=== PATIENT | male | born 1990 | race African-American/Black ===

== ENCOUNTER 2018-11-17 17:05 | Emergency (ER) | payer SELFPAY ==
[~2018-11-17] VITALS: Ht 177.8 cm; Wt 83.9 kg
[2018-11-17] MEDS ORDERED: ACETAMINOPHEN 500 MG TABLET PO ONE (17:15)
[2018-11-17] MEDS ORDERED: IV NORMAL SALINE 1000ML BAG 1,000 ML IV ONE (17:15)
[2018-11-17 17:24] LABS: BASO % 0 % (0-3); EOS # 0.1 x10^3/uL (0.0-0.7); EOS % 1 % (0-3); HEMATOCRIT 44.2 % (39.0-53.0); HEMOGLOBIN 14.6 g/dL (13.0-17.5); LYMPH % 16 % (24-48); MEAN CORPUSCULAR HEMOGLOBIN 27 pg (25-35); MEAN CORPUSCULAR HGB CONC 33 g/dL (31-37); MEAN CORPUSCULAR VOLUME 81 fL (79-100); MONO # 0.8 x10^3/uL (0.0-1.1); MONO % 7 % (0-9); NEUT % 77 % (31-73); PLATELET COUNT 157 x10^3/uL (140-400); RED BLOOD COUNT 5.47 x10^6/uL (4.30-5.70)
[2018-11-17 17:35] LABS: CALCIUM 8.3 mg/dL (8.5-10.1); CREATININE 1.3 mg/dL (0.7-1.3); GFR 78.4; POTASSIUM 3.8 mmol/L (3.5-5.1)
[2018-11-17 17:41] LABS: ALBUMIN 2.5 g/dL (3.4-5.0); ALBUMIN/GLOBULIN RATIO 0.7 (1.0-1.7); TOTAL BILIRUBIN 0.5 mg/dL (0.2-1.0)
[2018-11-17 17:46] LABS: INFLUENZA A PATIENT NEGATIVE (NEGATIVE)
[2018-11-17 17:47] LABS: INFLUENZA B PATIENT POSITIVE (NEGATIVE)
--- NOTE | 2018-11-17 17:53 | PHYS DOC ---
Past Medical History Past Medical History: No Pertinent History Past Surgical History: Other Additional Past Surgical Histo: RIGHT ANKLE, RIGHT EAR SURGERY Alcohol Use: Rarely Drug Use: Marijuana Adult General Chief Complaint Chief Complaint: FLU SYMPTOM HPI HPI Patient is a 28 year old male with no significant medical history who presents to the ED today complaining of flulike symptoms that began 4 days ago. Patient states his had generalized weakness, body aches, subjective fevers, symptoms for 4 days. He states today EMS was called, they took his blood pressure noted he was hypotensive, he states he had an episode of shortness of breath when EMS was called. He states he does not believe in influenza shots. Patient denies any diarrhea, nausea, vomiting. Denies any headache. Review of Systems Review of Systems Constitutional: Reports generalized weakness, body aches, subjective fevers Eyes: Denies change in visual acuity, redness, or eye pain [] HENT: Denies nasal congestion or sore throat [] Respiratory: Denies cough or shortness of breath [] Cardiovascular: No additional information not addressed in HPI [] GI: Denies abdominal pain, nausea, vomiting, bloody stools or diarrhea [] : Denies dysuria or hematuria [] Musculoskeletal: Denies back pain or joint pain [] Integument: Denies rash or skin lesions [] Neurologic: Denies headache, focal weakness or sensory changes [] All other systems were reviewed and found to be within normal limits, except as documented in this note. Current Medications Current Medications Current Medications Medications (Trade) Dose Ordered Sig/[facility] Start Time Stop Time Status Last Admin Dose Admin Acetaminophen (Tylenol) 1,000 mg 1X ONCE 11/17/18 17:15 11/17/18 17:25 DC 11/17/18 17:35 1,000 MG Sodium Chloride 1,000 ml @ 1,000 mls/hr 1X ONCE 11/17/18 17:15 11/17/18 18:14 11/17/18 17:35 1,000 MLS/HR Allergies Allergies Allergies Coded Allergies Type Severity Reaction Last Updated Verified No Known Drug Allergies 11/17/18 No Physical Exam Physical Exam Constitutional: Well developed, well nourished, no acute distress, non-toxic appearance. [] HENT: Normocephalic, atraumatic, bilateral external ears normal, oropharynx moist, no oral exudates, nose normal. [] Eyes: PERRLA, EOMI, conjunctiva normal, no discharge. [] Neck: Normal range of motion, no tenderness, supple, no stridor. [] Cardiovascular:Heart rate regular rhythm, no murmur [] Lungs & Thorax: Bilateral breath sounds clear to auscultation [] Abdomen: Bowel sounds normal, soft, no tenderness, no masses, no pulsatile masses. [] Skin: Warm, dry, no erythema, no rash. [] Back: No tenderness, no CVA tenderness. [] Extremities: No tenderness, no cyanosis, no clubbing, ROM intact, no edema. [] Neurologic: Alert and oriented X 3, normal motor function, normal sensory function, no focal deficits noted. [] Psychologic: Affect normal, judgement normal, mood normal. [] Current Patient Data Vital Signs Vital Signs Date Time Temp Pulse Resp B/P (MAP) Pulse Ox O2 Delivery O2 Flow Rate FiO2 11/17/18 17:05 99.0 88 16 113/57 (75) 97 Room Air 99.0 Lab Values Laboratory Tests Test 11/17/18 17:15 White Blood Count 13.0 x10^3/uL (4.0-11.0) H Red Blood Count 5.47 x10^6/uL (4.30-5.70) Hemoglobin 14.6 g/dL (13.0-17.5) Hematocrit 44.2 % (39.0-53.0) Mean Corpuscular Volume 81 fL (79-100) Mean Corpuscular Hemoglobin 27 pg (25-35) Mean Corpuscular Hemoglobin Concent 33 g/dL (31-37) Red Cell Distribution Width 14.0 % (11.5-14.5) Platelet Count 157 x10^3/uL (140-400) Neutrophils (%) (Auto) 77 % (31-73) H Lymphocytes (%) (Auto) 16 % (24-48) L Monocytes (%) (Auto) 7 % (0-9) Eosinophils (%) (Auto) 1 % (0-3) Basophils (%) (Auto) 0 % (0-3) Neutrophils # (Auto) 10.0 x10^3uL (1.8-7.7) H Lymphocytes # (Auto) 2.0 x10^3/uL (1.0-4.8) Monocytes # (Auto) 0.8 x10^3/uL (0.0-1.1) Eosinophils # (Auto) 0.1 x10^3/uL (0.0-0.7) Basophils # (Auto) 0.0 x10^3/uL (0.0-0.2) Sodium Level 145 mmol/L (136-145) Potassium Level 3.8 mmol/L (3.5-5.1) Chloride Level 108 mmol/L (98-107) H Carbon Dioxide Level 30 mmol/L (21-32) Anion Gap 7 (6-14) Blood Urea Nitrogen 13 mg/dL (8-26) Creatinine 1.3 mg/dL (0.7-1.3) Estimated GFR (Cockcroft-Gault) 78.4 BUN/Creatinine Ratio 10 (6-20) Glucose Level 116 mg/dL (70-99) H Calcium Level 8.3 mg/dL (8.5-10.1) L Total Bilirubin 0.5 mg/dL (0.2-1.0) Aspartate Amino Transferase (AST) 18 U/L (15-37) Alanine Aminotransferase (ALT) 20 U/L (16-63) Alkaline Phosphatase 53 U/L (46-116) Total Protein 6.0 g/dL (6.4-8.2) L Albumin 2.5 g/dL (3.4-5.0) L Albumin/Globulin Ratio 0.7 (1.0-1.7) L Ethyl Alcohol Level < 10 mg/dL (0-10) Influenza Type A Antigen Negative (NEGATIVE) Influenza Type B Antigen Positive (NEGATIVE) Laboratory Tests 11/17/18 17:15 Laboratory Tests 11/17/18 17:15 EKG EKG [] Radiology/Procedures Radiology/Procedures [] Course & Med Decision Making Course & Med Decision Making Pertinent Labs and Imaging studies reviewed. (See chart for details) This is a 28-year-old male patient presenting to the ED today with flulike symptoms including generalized body aches, weakness, subjective fevers symptoms began 4 days ago. Positive for influenza B. Labs are negative for any acute findings. Patient will be discharged to home. Symptoms have been going on for 4 days. Supportive measures provided. Dragon Disclaimer Dragon Disclaimer This electronic medical record was generated, in whole or in part, using a voice recognition dictation system. Departure Departure Impression: Primary Impression: Influenza B Disposition: HOME, SELF-CARE Condition: STABLE Referrals: NO PCP (PCP) follow up with your doctor in 1 week Patient Instructions: Influenza, Adult Additional Instructions: You tested positive for influenza B. This is a viral illness, you have been sick for more than 2 days, your symptoms will run their own course. Push fluids. Take Tylenol every 4 hours and Motrin every 6 hours. Follow-up with your doctor in the next 7 days. CHEN MADRID TUMBLER MACHINE OPERATOR Nov 17, 2018 17:53
--- NOTE | 2018-11-17 18:13 | RAD ---
EXAM: AP View of the chest DATE: 11/17/2018 5:52 PM INDICATION: SHORTNESS OF AIR, DIZZINESS, LIGHT HEADED X1 DAY COMPARISON: No Prior FINDINGS: The heart is not enlarged. Mediastinal and hilar contours are normal. No focal parenchymal airspace opacity. No pleural effusion or pneumothorax. IMPRESSION: 1. No evidence for acute cardiopulmonary process. Electronically signed by: Christopher Hopkins MD (11/17/2018 6:10 PM) [facility]
[2018-11-17 18:25] VITALS: BP 105/68
--- NOTE | 2018-11-18 05:19 | EKG ---
[facility] [address] [place] [address] Test Date: 2018-11-17 Test Time: 17:46:14 Pat Name: MAXIMO MOISE Department: Room: Gender: M O And M Supervisor: : 1990 Requested By: CHEN MADRID Order Number: [id number] Reading MD: Ze Harvey MD Measurements Intervals [place] Rate: 83 P: 48 LA: 138 QRS: 51 QRSD: 84 T: 0 QT: 328 QTc: 390 Interpretive Statements SINUS RHYTHM J-POINT ELEVATION, CONSIDER PERICARDITIS, CORRELATE CLINICALLY Electronically Signed On 11-18-2018 9:14:52 CDT by Ze Harvey MD
== END 2018-11-17 18:28 | disposition home or self-care (01) ==
LOC: ER 17:05
DX: J10.1 Influenza due to other identified influenza virus with other respiratory manifestations (principal); I95.9 Hypotension, unspecified; M79.18 Myalgia, other site; R53.1 Weakness
CPT/HCPCS: 36415; 71045; 80053; 84484; 85025; 87804; 93005; 99284; G0480; J7030

== ENCOUNTER 2021-04-07 20:05 | Emergency (ER) | payer SELFPAY ==
[~2021-04-07] VITALS: Ht 177.8 cm; Wt 86.0 kg
[2021-04-07 20:12] VITALS: BP 127/70
[2021-04-07] MEDS ORDERED: HYDROcodone/APAP 5/325MG 1 TAB TABLET PO ONE (20:15)
--- NOTE | 2021-04-07 20:56 | PHYS DOC ---
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 He states after it happened he got up and he walked around and continued his work that now is painful and is stiffening up. Patient is rating his pain a 9 out of 10 especially with moving. Denies any numbness or tingling. Denies any past medical history. He has had a ankle surgery on the right. (CHANA FLEMING PATIENT FINANCIAL REP) Review of Systems: Review of Systems: Constitutional: Denies fever or chills. [] Eyes: Denies change in visual acuity. [] HENT: Denies nasal congestion or sore throat. [] Respiratory: Denies cough or shortness of breath. [] Cardiovascular: Denies chest pain or + right knee edema. [] GI: Denies abdominal pain, nausea, vomiting, bloody stools or diarrhea. [] : Denies dysuria. [] Musculoskeletal: Denies back pain or + right knee joint pain. [] Integument: Denies rash. [] Neurologic: Denies headache, focal weakness or sensory changes. [] Endocrine: Denies polyuria or polydipsia. [] Lymphatic: Denies swollen glands. [] Psychiatric: Denies depression or anxiety. [] (CHANA FLEMING PATIENT FINANCIAL REP) Heart Score: C/O Chest Pain: No Risk Factors: Risk Factors: DM, Current or recent (<one month) smoker, HTN, HLP, family history of CAD, obesity. Risk Scores: Score 0 - 3: 2.5% MACE over next 6 weeks - Discharge Home Score 4 - 6: 20.3% MACE over next 6 weeks - Admit for Clinical Observation Score 7 - 10: 72.7% MACE over next 6 weeks - Early Invasive Strategies (CHANA FLEMING APRN) Current Medications: Current Medications Medications (Trade) Dose Ordered Sig/[facility] Start Time Stop Time Status Last Admin Dose Admin Acetaminophen/ Hydrocodone Bitart (Lortab 5/325) 1 tab 1X ONCE 04/07/21 20:15 04/07/21 20:16 DC 04/07/21 20:26 1 TAB (CHANA FLEMING APRN) Allergies: Allergies: Allergies Coded Allergies Type Severity Reaction Last Updated Verified No Known Drug Allergies 11/17/18 No (CHANA FLEMING APRN) Physical Exam: PE: Constitutional: Well developed, well nourished, no acute distress, non-toxic appearance. [] HENT: Normocephalic, atraumatic, bilateral external ears normal, oropharynx moist, no oral exudates, nose normal. [] Eyes: PERRLA, EOMI, conjunctiva normal, no discharge. [] Neck: Normal range of motion, no tenderness, supple, no stridor. [] Cardiovascular:Heart rate regular rhythm, no murmur [] Lungs & Thorax: Bilateral breath sounds clear to auscultation [] Abdomen: Bowel sounds normal, soft, no tenderness, no masses, no pulsatile masses. [] Skin: Warm, dry, no erythema, no rash. [] Back: No tenderness, no CVA tenderness. [] Extremities: Right medial, lateral, anterior, posterior knee tenderness, no cyanosis, no clubbing, ROM intact but painful, right knee 2+ edema. [] Neurologic: Alert and oriented X 3, normal motor function, normal sensory function, no focal deficits noted. [] Psychologic: Affect normal, judgement normal, mood normal. [] (CHANA FLEMING APRN) Current Patient Data: Vital Signs: Vital Signs Date Time Temp Pulse Resp B/P (MAP) Pulse Ox O2 Delivery O2 Flow Rate FiO2 04/07/21 20:12 98.9 80 24 127/70 98 Room Air 98.9 (CHANA FLEMING APRN) EKG: EKG: [] (CHANA FLEMING APRN) Radiology/Procedures: Radiology/Procedures: [] Impression: [facility] [address] [place], [place] [id number] IMAGING REPORT Signed PATIENT: MAXIMO MOISE ACCOUNT: [id number] : 1990 LOCATION: ER AGE: 31 SEX: M EXAM STATUS: REG ER ORD. PHYSICIAN: CHANA FLEMING APRN REASON: PAIN AFTER CRUSHING KNEE BETWEEN AND PILLAR PROCEDURE: KNEE RIGHT 4V KNEE 4 VIEWS LEFT Clinical Indication: Reason: PAIN AFTER CRUSHING KNEE BETWEEN AND PILLAR / Spl. Instructions: / History: Comparison: None. Findings: There is no acute fracture or dislocation. The tricompartmental joint spaces are maintained. The patella is in anatomic position. There is no soft tissue abnormality. There is no obvious joint effusion, the lateral view is obliqued. IMPRESSION: No acute fracture. Electronically signed by: Tommie Horan MD (04/07/2021 9:00 PM) [facility] DICTATED and SIGNED BY: TOMMIE HORAN MD DATE: 04/07/[id number] 0 (CHANA FLEMING APRN) Course & Med Decision Making: Course & Med Decision Making Pertinent Labs and Imaging studies reviewed. (See chart for details) See HPI. Alert and oriented x4. Ambulatory steady gait but limping on the right. Speaks in full clear sentences. Knee tenderness duplex on anterior, lateral, medial, posterior. No bruising seen. Popliteal pulse present. Skin pink warm and dry. No abrasion, laceration or bruising seen. No joint laxity. Patient placed in a knee immobilizer. [] (CHANA FLEMING APRN) Course & Med Decision Making Patients Care and treatment plan provided by ER Nurse Practitioner. I was available for consult. Patient's chart reviewed. (CLAUDIA CURRAN DO) Shruthi Disclaimer: Shruthi Disclaimer: This electronic medical record was generated, in whole or in part, using a voice recognition dictation system. (CHANA FLEMING APRN) Departure Departure Impression: Primary Impression: Contusion of knee, right Qualified Codes: S80.01XA - Contusion of right knee, initial encounter Disposition: HOME / SELF CARE / HOMELESS Condition: STABLE Referrals: NO PCP (PCP) BRENDON CONNOR MD Patient Instructions: Contusions-SportsMed Additional Instructions: Follow-up with orthopedic. Use ice and heat. Take ibuprofen for your pain. Scripts Hydrocodone Bit/Acetaminophen (HYDROCODONE-APAP 5-325 ) 1 Tab Tablet 1 TAB PO PRN Q6HRS PRN for PAIN, #6 TAB 0 Refills Prov: CHANA FLEMING APRN 04/07/21 Ibuprofen (IBUPROFEN) 600 Mg Tablet 600 MG PO PRN Q6HRS PRN for INFLAMMATION, #20 TAB Prov: CHANA FLEMING APRN 04/07/21 CHANA FLEMING APRN Apr 07, 2021 20:56 CLAUDIA CURRAN DO Apr 09, 2021 18:24
--- NOTE | 2021-04-07 21:02 | RAD ---
KNEE 4 VIEWS LEFT Clinical Indication: Reason: PAIN AFTER CRUSHING KNEE BETWEEN AND PILLAR / Spl. Instructions: / Hist ory: Comparison: None. Findings: There is no acute fracture or dislocation. The tricompartmental joint spaces are maintained. The rahman lla is in anatomic position. There is no soft tissue abnormality. There is no obvious joint effusion, the lateral view is obliqued. IMPRESSION: No acute fracture. Electronically signed by: Tommie Horan MD (04/07/2021 9:00 PM) [facility]
[2021-04-07] MEDS ORDERED: HYDR-2761 PO (21:26)
[2021-04-07] MEDS ORDERED: IBUP-1007 PO (21:26)
== END 2021-04-07 22:18 | disposition home or self-care (01) ==
LOC: ER 20:05
DX: S80.01XA Contusion of right knee, initial encounter (principal); W23.0XXA Caught, crushed, jammed, or pinched between moving objects, initial encounter; Y93.89 Activity, other specified; Y92.89 Other specified places as the place of occurrence of the external cause; Y99.8 Other external cause status
CPT/HCPCS: 29505; 73564; 99283